=== PATIENT | female | born 1945 | race Caucasian/White ===

== ENCOUNTER 2017-08-25 09:22 | Emergency (ER) | payer OTHER ==
[~2017-08-25] VITALS: Ht 170.2 cm; Wt 84.8 kg
[2017-08-25] MEDS ORDERED: SYMBICORT 16010.2 GM (09:38)
== END 2017-08-25 14:55 | disposition home or self-care (01) ==
LOC: ER 09:22
DX: J45.998 Other asthma (principal); B34.9 Viral infection, unspecified; J11.1 Influenza due to unidentified influenza virus with other respiratory manifestations